=== PATIENT | male | born 1990 | race Hispanic/Latino ===

== ENCOUNTER 2020-04-14 10:08 | Emergency (ER) | payer SELFPAY ==
[2020-04-14 10:42] LABS: Absolute Lymphocytes (CBC) 2.4 K/uL (0.7-4.9); Basophils % 1.3 % (0-1.3); Hematocrit 47.4 % (39.6-49.0); Lymphocytes % 30.1 % (15.3-44.8); MPV 8.2 fL (7.6-11.3); RBC Red Blood Cell Count 5.07 M/uL (4.33-5.43)
[2020-04-14 11:07] LABS: ALT/SGPT 26 U/L (12-78); AST/SGOT 16 U/L (15-37); Albumin 3.9 g/dL (3.4-5.0); Alkaline Phosphatase 79 U/L (45-117); BUN Blood Urea Nitrogen 12 mg/dL (7-18); Bicarbonate 27 mmol/L (21-32); Bilirubin Total 0.9 mg/dL (0.2-1.0); Glucose Level 72 mg/dL (74-106); Potassium 3.5 mmol/L (3.5-5.1); Protein, Total 7.2 g/dL (6.4-8.2); Sodium Level 141 mmol/L (136-145)
--- NOTE | 2020-04-14 11:11 | RAD REPORT ---
EXAM DESCRIPTION: CT - Head C Spine Cap W Con - 04/14/2020 10:42 am CLINICAL HISTORY: fall, fall from scaffolding, head, neck, chest and abdomen pain COMPARISON: No comparisons TECHNIQUE: Axial [address] head images were obtained. Axial [address] cervical spine images were obtaine d with sagittal and coronal reconstruction images reviewed. During dynamic enhancement of 100mL non-i onic contrast, axial 5 mm images of the chest, abdomen and pelvis were obtained. Biphasic technique p erformed of the abdomen and pelvis. All CT scans are performed using dose optimization technique as appropriate and may include automated exposure control or mA/KV adjustment according to patient size. FINDINGS: No intracranial hemorrhage, mass or edema. No midline shift or abnormal fluid collection. Mastoid air cells and paranasal sinuses are clear. No skull fracture. CT cervical spine imaging shows normal height. Normal alignment of the vertebrae. No disc space narro wing. No paraspinal mass or hematoma seen. Central canal detail is inherently limited. Concerns for t raumatic disc herniation or traumatic cord injury can be further addressed with MR imaging. CT chest shows no pneumothorax, pulmonary contusion or pleural fluid collection. Benign calcified gra nuloma seen in the lower left lung field. No mediastinal hematoma and the aorta and pulmonary arterie s are unremarkable. No chest will mass or abnormal axillary finding. No displaced rib fracture or oth er significant bony finding. CT abdomen and pelvis show no injury to solid abdominal viscera. Gallbladder and biliary tree are unr emarkable. No bowel injury or significant finding. No free air, free fluid or abnormal stranding. No urinary bladder abnormality. No significant bony finding. No significant vascular finding. IMPRESSION: No significant CT Head finding. No significant CT Cervical Spine finding. No significant CT Chest finding. No significant CT Abdomen and Pelvis finding.
--- NOTE | 2020-04-14 11:22 | RAD REPORT ---
EXAM DESCRIPTION: RAD - Knee Left 3 View - 04/14/2020 11:08 am CLINICAL HISTORY: fall, patient fell from scaffolding 6-10 fee. COMPARISON: No comparisons FINDINGS: No fracture, dislocation or periosteal reaction.No joint effusion seen. No joint space alireza rowing. No soft tissue abnormality. IMPRESSION: Negative left knee. Clinical concerns for internal derangement or occult bony injury could be further assessed with MR im aging.
--- NOTE | 2020-04-14 11:23 | RAD REPORT ---
EXAM DESCRIPTION: RAD - Tib Fib Left - 04/14/2020 11:09 am CLINICAL HISTORY: Fall from scaffolding COMPARISON: None. FINDINGS: No fracture is identified. There is no dislocation or periosteal reaction noted. No acute or suspicious bony finding. In the medial upper portion of the left lower leg there is a 2.5 centimeter area of lucency adjacent to the tibia. No bony changes in this region. No history of penetrating injury. This may be focal fat ty tissue. Significance is doubtful. IMPRESSION: Negative left tibia & fibula examination for acute or significant finding.
--- NOTE | 2020-04-14 11:24 | RAD REPORT ---
EXAM DESCRIPTION: RAD - Foot Right 3 View - 04/14/2020 11:09 am CLINICAL HISTORY: fallpatient fell from scaffolding 6-10 COMPARISON: No comparisonsNone. FINDINGS: No fracture, dislocation or periosteal reaction. No air or foreign body in the soft tissues. IMPRESSION: Negative right foot examination.
--- NOTE | 2020-04-14 11:24 | RAD REPORT ---
EXAM DESCRIPTION: RAD - Foot Left 3 View - 04/14/2020 11:09 am CLINICAL HISTORY: fall, patient fell from scaffolding 6-10 feet COMPARISON: No comparisons FINDINGS: No fracture, dislocation or periosteal reaction. No acute or destructive bony process. No air or foreign body in the soft tissues. IMPRESSION: Negative left foot examination.
--- NOTE | 2020-04-14 11:24 | RAD REPORT ---
EXAM DESCRIPTION: RAD - Tib Fib Right - 04/14/2020 11:09 am CLINICAL HISTORY: fall, patient fell from scaffolding 6-10 feet COMPARISON: No comparisons FINDINGS: No fracture is identified. There is no dislocation or periosteal reaction noted. No acute or suspicious bony finding. No foreign body or other soft tissue abnormality. IMPRESSION: Negative right tibia & fibula examination.
[2020-04-14] MEDS ORDERED: ONDANSETRON 4 MG/2 ML VIAL ONE (11:26)
[2020-04-14] MEDS ORDERED: MORPHINE 4 MG/ML SYR ONE (11:26)
--- NOTE | 2020-04-14 11:34 | ER ---
Nurse's Notes [facility] Name: Vivek Gonzalez Age: 30 yrs Sex: Male : 1990 Arrival Date: 04/14/2020 Time: 10:12 Bed 2 Private MD: Diagnosis: Unspecified injury of head;Sprain of joints and ligaments of unspecified parts of neck;Strain of muscle, fascia and tendon of lower back;Internal derangement of knee;Abrasion of lower leg Presentation: 04/14 10:25 Chief complaint: Patient states: fall from 6-10 feet off of scaffolding approximately 1 ss hour ago. Pt reports on the way down his knees and feet hit the scaffolding and then he landed onto his back hitting the back of his head. C/o pain to bilateral knees and feet, back of head and lower back. Scraps noted to bilateral lower extremities. No active bleeding noted at this time. Coronavirus screen: Patient denies a cough. Patient denies shortness of breath or difficulty breathing. Patient denies measured and/or subjective temperature greater than 100.4F prior to today's visit. Patient denies travel on a cruise ship or to a country the [facility] currently lists as an affected area. Patient denies contact with known and/or suspected case of COVID-19. Ebola Screen: Patient denies exposure to infectious person. Patient denies travel to an Ebola-affected area in the 21 days before illness onset. Mechanism of Injury: resulted from a fall, from a standing position. Initial Sepsis Screen: Does the patient meet any 2 criteria? No. Patient's initial sepsis screen is negative. Does the patient have a suspected source of infection? No. Patient's initial sepsis screen is negative. Risk Assessment: Do you want to hurt yourself or someone else? Patient reports no desire to harm self or others. 10:25 Method Of Arrival: Ambulatory 10:25 Acuity: ABBY 2 10:25 Care prior to arrival: None. Trauma event details: Injury occurred in the [facility], Injury occurred: April 14, 2020. 10:37 Mechanism of Injury: Fall in industrial area approximately 6 feet. jl7 10:41 Onset of symptoms was April 14, 2020. jl7 Triage Assessment: 10:41 Neuro: Reports none. jl7 Trauma Activation: Alert Physician: ED Physician; Name: ; Notified At: ; Arrived At: Physician: General Surgeon; Name: ; Notified At: ; Arrived At: Physician: Radiology; Name: ; Notified At: ; Arrived At: Physician: Respiratory; Name: ; Notified At: ; Arrived At: Physician: Lab; Name: ; Notified At: ; Arrived At: Historical: - Allergies: 10:27 No Known Allergies; ss - Home Meds: 10:27 None [Active]; ss - PMHx: 10:27 None; ss - PSHx: 10:27 None; ss - Immunization history:: Adult Immunizations up to date. - Social history:: Smoking status: Patient denies any tobacco usage or history of. - Immunization history: Last tetanus immunization: unknown. Screenin:27 Abuse screen: Denies threats or abuse. Denies injuries from another. Nutritional ss screening: No deficits noted. 10:37 Tuberculosis screening: No symptoms or risk factors identified. jl7 10:41 Fall Risk IV access (20 points). Total Cotter Fall Scale indicates No Risk (0-24 pts). jl7 Primary Survey: 10:25 NO uncontrolled hemorrhage observed. ss 10:37 Breathing/Chest: Respiratory pattern: regular, Respiratory effort: spontaneous, jl7 unlabored, Chest inspection: symmetrical rise and fall of the chest. Circulation: Pulses: palpable right radial artery, right posterior tibial artery, left radial artery and left posterior tibial artery. Skin color: pink, Skin temperature: warm. Disability Alert. Exposure/Environment: Obvious injury(ies) are noted at this time: Abrasions and bruising to bilateral shins A warming method has been applied: A warm blanket has been provided to the patient. 11:00 Reassessment Airway Airway Patent Breathing/Chest Respiratory pattern Regular jl7 Respiratory effort Spontaneous Unlabored Chest inspection Symmetrical Circulation Color Harrison Disability Alert. Assessment: 10:25 Reassessment: C-collar placed on pt. jl7 10:37 General: Appears in no apparent distress. uncomfortable, Behavior is calm, cooperative, jl7 appropriate for age. Pain: Complains of pain in posterior cervical area, low back area, right glynn, left knee and left glynn Pain currently is 10 out of 10 on a pain scale. Neuro: Level of Consciousness is awake, alert, obeys commands, Oriented to person, place, time, situation. Cardiovascular: Patient's skin is warm and dry. Pulses are palpable in right radial artery, right posterior tibial artery, left radial artery and left posterior tibial artery. Respiratory: Airway is patent Respiratory effort is even, unlabored, Respiratory pattern is regular, symmetrical, Denies shortness of breath. Derm: Skin is pink, warm \T\ dry. Injury Description: Abrasion sustained to right glynn and left glynn is dirty, was sustained 30-60 minutes ago. 11:26 Reassessment: C-Collar removed. jl7 Vital Signs: 10:25 BP 139 / 79; Pulse 84; Resp 16; Temp 98.4(TE); Pulse Ox 100% on R/A; Pain 10/10; ss 11:00 BP 120 / 75; Pulse 68; Resp 16; Pulse Ox 100% ; jl7 11:20 BP 125 / 71; Pulse 80; Resp 16 S; Pulse Ox 100% on R/A; jl7 11:50 BP 119 / 74; Pulse 60; Resp 16; Pulse Ox 100% ; Pain 8/10; jl7 Dario Coma Score: 10:25 Eye Response: spontaneous(4). Verbal Response: oriented(5). Motor Response: obeys ss commands(6). Total: 15. 10:25 Eye Response: spontaneous(4). Verbal Response: oriented(5). Motor Response: obeys ss commands(6). Total: 15. 11:00 Eye Response: spontaneous(4). Verbal Response: oriented(5). Motor Response: obeys jl7 commands(6). Total: 15. 11:20 Eye Response: spontaneous(4). Verbal Response: oriented(5). Motor Response: obeys jl7 commands(6). Total: 15. 11:50 Eye Response: spontaneous(4). Verbal Response: oriented(5). Motor Response: obeys jl7 commands(6). Total: 15. Trauma Score (Adult): 10:25 Eye Response: spontaneous(1); Verbal Response: oriented(1); Motor Response: obeys ss commands(2); Systolic BP: > 89 mm Hg(4); Respiratory Rate: 10 to 29 per min(4); Houston Score: 15; Trauma Score: 12 ED Course: 10:12 Patient arrived in ED. bp1 10:12 Geovanni Phillips PA is PHCP. jmm 10:12 Kiran Boland MD is Attending Physician. [facility] 10:24 Yisel Caro, DEMETRA is Primary Nurse. jl7 10:27 Triage completed. ss 10:27 Arm band placed on right wrist. ss 10:27 Patient has correct armband on for positive identification. Placed in gown. Bed in low ss position. Call light in reach. 10:30 Initial lab(s) drawn, by me, sent to lab. Inserted saline lock: 20 gauge in left dh3 antecubital area, using aseptic technique. Blood collected. 10:37 Patient maintains SpO2 saturation greater than 95% on room air. Thermoregulation: warm jl7 blanket given to patient. 10:41 Pulse ox on. NIBP on. jl7 10:43 CT Traumagram (Head C Spine CAP W Con) In Process Unspecified. EDMS 11:09 Knee Left 3 View XRAY In Process Unspecified. EDMS 11:09 Tib Fib Left XRAY In Process Unspecified. EDMS 11:09 Tib Fib Right XRAY In Process Unspecified. EDMS 11:09 Foot Right 3 View XRAY In Process Unspecified. EDMS 11:09 Foot Left 3 View XRAY In Process Unspecified. EDMS 12:03 No provider procedures requiring assistance completed. IV discontinued, intact, jl7 bleeding controlled, No redness/swelling at site. Pressure dressing applied. Administered Medications: 11:19 Drug: Zofran (Ondansetron) 4 mg Route: IVP; Site: right antecubital; jl7 12:07 Follow up: Response: No adverse reaction jl7 11:21 Drug: morphine 4 mg Route: IVP; Site: left antecubital; jl7 11:50 Follow up: Response: No adverse reaction; Pain is decreased jl7 Intake: 12:06 PO: 0ml; IV: 0ml; Tubes: 0ml (); Total: 0ml. jl7 Output: 12:06 Urine: 0ml; Gastric: 0ml; Stool: 00; EBL: 0ml; Drainage: 0ml; Other: 0; Total: 0ml. jl7 Outcome: 11:33 Discharge ordered by . jmm 12:03 Discharged to home ambulatory. jl7 12:03 Condition: stable 12:03 Discharge instructions given to patient, Instructed on discharge instructions, follow up and referral plans. medication usage, Demonstrated understanding of instructions, follow-up care, medications. 12:06 Patient's length of stay was not longer than 2 hours. jl7 12:13 Patient left the ED. lt1 Signatures: Dispatcher [employer] EDMS Geovanni Phillips PA PA jmm Smirch, Shelby, RN Yisel Le RN RN jl7 Becca Garner 3 Maranda Alonso lt1 Ara Porter [facility]
--- NOTE | 2020-04-14 11:34 | EDPHYS ---
Physician Documentation [facility] Name: Vivek Gonzalez Age: 30 yrs Sex: Male : 1990 Arrival Date: 04/14/2020 Time: 10:12 Bed 2 Private MD: ED Physician Kiran Boland HPI: 04/14 10:26 This 30 yrs old Male presents to ER via Ambulatory with complaints of Head jmm Injury-Adult, Leg Injury, Back Injury. 10:26 Details of fall: The patient fell from a height, off scaffolding, approximately 10 jmm feet, but hit scaffolding structure on the way down. Onset: The symptoms/episode began/occurred acutely. Associated injuries: The patient sustained injury to the head, neck injury, injury to the low back. This is a 30 year old male with no chronic medical conditions that presents to the ED with complaints of headache, neck pain, lower back pain, knee pain, lower leg pain and bilateral foot pain. Patient denies other injury.. Historical: - Allergies: 10:27 No Known Allergies; ss - Home Meds: 10:27 None [Active]; ss - PMHx: 10:27 None; ss - PSHx: 10:27 None; ss - Immunization history:: Adult Immunizations up to date. - Social history:: Smoking status: Patient denies any tobacco usage or history of. - Immunization history: Last tetanus immunization: unknown. ROS: 10:26 Constitutional: Negative for fever, chills, and weight loss, Cardiovascular: Negative jmm for chest pain, palpitations, and edema, Respiratory: Negative for shortness of breath, cough, wheezing, and pleuritic chest pain. 10:26 Neck: Positive for pain with movement. 10:26 MS/extremity: Positive for injury or acute deformity, pain. 10:26 Skin: Positive for abrasion(s). 10:26 Neuro: Positive for headache. 10:26 All other systems are negative. Exam: 10:26 Constitutional: This is a well developed, well nourished patient who is awake, alert, jmm and in no acute distress. 10:26 Eyes: EOMI, no conjunctival erythema appreciated ENT: Moist Mucus Membranes 10:26 Chest/axilla: Normal chest wall appearance and motion. 10:26 Head/face: Exam is negative for acute changes, abrasion(s), deformity, ecchymosis, hematoma, raccoon eyes, swelling, tenderness. 10:26 Neck: C-spine: vertebral tenderness, that is moderate, diffusely. 10:26 Cardiovascular: Rate: normal, Rhythm: regular, Pulses: no pulse deficits are appreciated. 10:26 Respiratory: the patient does not display signs of respiratory distress, Respirations: normal, Breath sounds: are clear throughout. 10:26 Abdomen/GI: Inspection: abdomen appears normal, Bowel sounds: normal, Palpation: abdomen is soft and non-tender, in all quadrants. 10:26 Back: pain, that is moderate, of the lumbar area. 10:26 Musculoskeletal/extremity: ROM: intact in all extremities, mild left anterior knee pain on palpation, FROM appreciated compartments are soft, NVI. Abrasions noted to thje right and left lower legs, no bony tenderness, compartments are soft, NVI. 10:26 Skin: abrasions noted to the lower legs bilaterally. 10:26 Neuro: Orientation: is normal, Mentation: is normal, Memory: is normal. 10:26 Psych: Behavior/mood is pleasant, cooperative. Vital Signs: 10:25 BP 139 / 79; Pulse 84; Resp 16; Temp 98.4(TE); Pulse Ox 100% on R/A; Pain 10/10; ss 11:00 BP 120 / 75; Pulse 68; Resp 16; Pulse Ox 100% ; jl7 11:20 BP 125 / 71; Pulse 80; Resp 16 S; Pulse Ox 100% on R/A; jl7 11:50 BP 119 / 74; Pulse 60; Resp 16; Pulse Ox 100% ; Pain 8/10; jl7 Gulliver Coma Score: 10:25 Eye Response: spontaneous(4). Verbal Response: oriented(5). Motor Response: obeys ss commands(6). Total: 15. 10:25 Eye Response: spontaneous(4). Verbal Response: oriented(5). Motor Response: obeys ss commands(6). Total: 15. 11:00 Eye Response: spontaneous(4). Verbal Response: oriented(5). Motor Response: obeys jl7 commands(6). Total: 15. 11:20 Eye Response: spontaneous(4). Verbal Response: oriented(5). Motor Response: obeys jl7 commands(6). Total: 15. 11:50 Eye Response: spontaneous(4). Verbal Response: oriented(5). Motor Response: obeys jl7 commands(6). Total: 15. Trauma Score (Adult): 10:25 Eye Response: spontaneous(1); Verbal Response: oriented(1); Motor Response: obeys ss commands(2); Systolic BP: > 89 mm Hg(4); Respiratory Rate: 10 to 29 per min(4); Dario Score: 15; Trauma Score: 12 MDM: 10:26 Patient medically screened. [facility] 11:31 Data reviewed: vital signs, nurses notes. Counseling: I had a detailed discussion with [facility] the patient and/or guardian regarding: the historical points, exam findings, and any diagnostic results supporting the discharge/admit diagnosis, lab results, radiology results, the need for outpatient follow up, to return to the emergency department if symptoms worsen or persist or if there are any questions or concerns that arise at home. ED course: Patient is advised to follow up with pcp and otherwise given strict head injury precautions. Patient understood and agrees with the plan of care. . 04/14 10:28 Order name: CBC with Diff; Complete Time: 10:46 [facility] 04/14 10:28 Order name: CMP; Complete Time: 11:10 [facility] 04/14 10:28 Order name: CT Traumagram (Head C Spine CAP W Con); Complete Time: 11:13 [facility] 04/14 10:28 Order name: Knee Left 3 View XRAY; Complete Time: 11:23 [facility] 04/14 10:28 Order name: Tib Fib Left XRAY; Complete Time: 11:25 [facility] 04/14 10:28 Order name: Tib Fib Right XRAY; Complete Time: 11:26 [facility] 04/14 10:28 Order name: Foot Right 3 View XRAY; Complete Time: 11:26 [facility] 04/14 10:28 Order name: Foot Left 3 View XRAY; Complete Time: 11:26 [facility] 04/14 10:28 Order name: Saline Lock; Complete Time: 10:36 [facility] Administered Medications: 11:19 Drug: Zofran (Ondansetron) 4 mg Route: IVP; Site: right antecubital; jl7 12:07 Follow up: Response: No adverse reaction [facility] 11:21 Drug: morphine 4 mg Route: IVP; Site: left antecubital; jl7 11:50 Follow up: Response: No adverse reaction; Pain is decreased jl7 Disposition: 18:17 Co-signature as Attending Physician, Kiran Boland MD. ma2 Disposition: 04/14/20 11:33 Discharged to Home. Impression: Unspecified injury of head, Sprain of joints and ligaments of unspecified parts of neck, Strain of muscle, fascia and tendon of lower back, Internal derangement of knee, Abrasion of lower leg. - Condition is Stable. - Discharge Instructions: Abrasion, Back Pain, Adult, Head Injury, Adult, Knee Pain. - Prescriptions for orphenadrine citrate 100 mg Oral Tablet Sustained Release - take 1 tablet by ORAL route 2 times per day As needed; 20 tablet. - Medication Reconciliation Form, Thank You Letter, Antibiotic Education, Prescription Opioid Use, Work release form form. - Follow up: Private Physician; When: 2 - 3 days; Reason: Recheck today's complaints, Continuance of care, Re-evaluation by your physician. Signatures: Dispatcher [employer] EDMS Geovanni Phillips PA PA jmm Smirch, Shelby, RN RN Yisel Mcrae RN RN jl7 Kiran Boland MD MD ma2 Maranda Alonso 1 Corrections: (The following items were deleted from the chart) 12:13 11:33 04/14/2020 11:33 Discharged to Home. Impression: Unspecified injury of head; lt1 Sprain of joints and ligaments of unspecified parts of neck; Strain of muscle, fascia and tendon of lower back; Internal derangement of knee; Abrasion of lower leg. Condition is Stable. Forms are Medication Reconciliation Form, Thank You Letter, Antibiotic Education, Prescription Opioid Use. Follow up: Private Physician; When: 2 - 3 days; Reason: Recheck today's complaints, Continuance of care, Re-evaluation by your physician. arlene
[2020-04-14 12:21] VITALS: TEMP 98.4; O2SAT 100
[2020-04-14 12:39] VITALS: BP 120/75
== END 2020-04-14 12:13 | disposition home or self-care (01) ==
LOC: ER 10:08
DX: S13.9XXA Sprain of joints and ligaments of unspecified parts of neck, initial encounter (principal); S39.012A Strain of muscle, fascia and tendon of lower back, initial encounter; S80.812A Abrasion, left lower leg, initial encounter; W17.89XA Other fall from one level to another, initial encounter; Y93.89 Activity, other specified; Y92.89 Other specified places as the place of occurrence of the external cause; Y99.8 Other external cause status
CPT/HCPCS: 36415; 70450; 71260; 72125; 74177; 80053; 85025; 99284; J2405; Q9967

== ENCOUNTER 2020-04-18 21:31 | Emergency (ER) | payer SELFPAY ==
[2020-04-18] MEDS ORDERED: KETOROLAC 30 MG/ML INJ ONE (22:24)
--- NOTE | 2020-04-18 22:59 | EDPHYS ---
Physician Documentation [facility] Name: Vivek Gonzalez Age: 30 yrs Sex: Male : 1990 Arrival Date: 04/18/2020 Time: 21:54 Bed 13 Private MD: ED Physician Yury Webb HPI: 04/19 06:41 This 30 yrs old Male presents to ER via Ambulatory with complaints of Back Pain, Fall tw4 Injury, Headache, Knee Pain. 06:41 The patient presents with pain that is chronic, with no known mechanism of injury. The tw4 symptoms are located in the right scapular area and right subscapular area. Onset: The symptoms/episode began/occurred 1 week(s) ago, and became worse today. The pain does not radiate. Associated signs and symptoms: The patient has no apparent associated signs or symptoms. Severity of symptoms: At their worst the symptoms were mild, in the emergency department the symptoms are unchanged. The patient has experienced a previous episode. Historical: - Allergies: 04/18 22:15 No Known Allergies; ea - Home Meds: 22:15 None [Active]; ea - PMHx: 22:15 None; ea - PSHx: 22:15 None; ea - Immunization history:: Adult Immunizations up to date. - Social history:: Smoking status: Patient reports the use of cigarette tobacco products, smokes one-half pack cigarettes per day, Smoking status: Patient reports the use of cigarette tobacco products, smokes one-half pack cigarettes per day. ROS: 04/19 06:41 Constitutional: Negative for fever, chills, and weight loss, Eyes: Negative for injury, tw4 pain, redness, and discharge, Cardiovascular: Negative for chest pain, palpitations, and edema, Respiratory: Negative for shortness of breath, cough, wheezing, and pleuritic chest pain, Abdomen/GI: Negative for abdominal pain, nausea, vomiting, diarrhea, and constipation, MS/Extremity: Negative for injury and deformity, Skin: Negative for injury, rash, and discoloration, Neuro: Negative for headache, weakness, numbness, tingling, and seizure. Back: Positive for decreased range of motion, pain at rest, pain with movement. Exam: 06:41 Constitutional: This is a well developed, well nourished patient who is awake, alert, tw4 and in no acute distress. Head/Face: Normocephalic, atraumatic. Chest/axilla: Normal chest wall appearance and motion. Nontender with no deformity. No lesions are appreciated. Cardiovascular: Regular rate and rhythm with a normal S1 and S2. No gallops, murmurs, or rubs. Normal PMI, no JVD. No pulse deficits. Respiratory: Lungs have equal breath sounds bilaterally, clear to auscultation and percussion. No rales, rhonchi or wheezes noted. No increased work of breathing, no retractions or nasal flaring. Abdomen/GI: Soft, non-tender, with normal bowel sounds. No distension or tympany. No guarding or rebound. No evidence of tenderness throughout. MS/ Extremity: Pulses equal, no cyanosis. Neurovascular intact. Full, normal range of motion. Neuro: Awake and alert, GCS 15, oriented to person, place, time, and situation. Cranial nerves II-XII grossly intact. Motor strength 5/5 in all extremities. Sensory grossly intact. Cerebellar exam normal. Normal gait. 06:41 Back: pain, that is mild, of the right scapular area and right subscapular area, ROM is normal. Vital Signs: 04/18 22:09 BP 157 / 85; Pulse 67; Resp 18; Temp 98.6; Pulse Ox 100% ; Weight 74.39 kg; Height 5 ea ft. 8 in. (172.72 cm); Pain 8/10; 22:09 Body Mass Index 24.94 (74.39 kg, 172.72 cm) ea MDM: 22:07 Patient medically screened. tw4 04/19 06:41 Differential diagnosis: chronic back pain, Fracture sprain. Data reviewed: vital signs, tw4 nurses notes. Data interpreted: Pulse oximetry: Interpretation: normal. Counseling: I had a detailed discussion with the patient and/or guardian regarding: the historical points, exam findings, and any diagnostic results supporting the discharge/admit diagnosis. Medication response: Toradol partially relieved the patient's pain. Response to treatment: and as a result, I will discharge patient. Special discussion: I discussed with the patient/guardian in detail that at this point there is no indication for admission to the hospital. It is understood, however, that if the symptoms persist or worsen the patient needs to return immediately for re-evaluation. Administered Medications: 04/18 22:21 Drug: TORadol 60 mg Route: IM; Site: right deltoid; ea 23: Follow up: Response: No adverse reaction : Drug: [place] 5 mg-325 mg 1 tabs {Note: RASS 0.} Route: PO; ea 23: Follow up: Response: Medication administered at discharge.; RASS: Alert and Calm (0) Disposition: 04/18/20 22:58 Discharged to Home. Impression: Contusion of right back wall of thorax. - Condition is Stable. - Discharge Instructions: Contusion. - Prescriptions for Ibuprofen 800 mg Oral Tablet - take 1 tablet by ORAL route every 8 hours As needed take with food; 30 tablet. Tramadol 50 mg Oral Tablet - take 1 tablet by ORAL route every 8 hours as needed; 12 tablet. - Work release form, Medication Reconciliation Form, Thank You Letter, Antibiotic Education, Prescription Opioid Use form. - Follow up: Private Physician; When: Upon discharge from the Emergency Department; Reason: Recheck today's complaints, Continuance of care, Re-evaluation by your physician. - Problem is new. - Symptoms have improved. Signatures: Katt Gunter, RN RN lp1 Tammy Gonzalez RN Yury Mohan ea, MD MD tw4 Corrections: (The following items were deleted from the chart) 23:12 22:58 04/18/2020 22:58 Discharged to Home. Impression: Contusion of right back wall of ea thorax. Condition is Stable. Forms are Medication Reconciliation Form, Thank You Letter, Antibiotic Education, Prescription Opioid Use. Follow up: Private Physician; When: Upon discharge from the Emergency Department; Reason: Recheck today's complaints, Continuance of care, Re-evaluation by your physician. Problem is new. Symptoms have improved. tw4
--- NOTE | 2020-04-18 22:59 | ER ---
Nurse's Notes [facility] Name: Vivek Gonzalez Age: 30 yrs Sex: Male : 1990 Arrival Date: 04/18/2020 Time: 21:54 Bed 13 Private MD: Diagnosis: Contusion of right back wall of thorax Presentation: 04/18 22:08 Chief complaint: Patient states: He fell off of a scaffold about 10 feet high on lp1 Friday, seen here in ED; States continued pain to left low back, radiating down left leg, states pain below left knee when weight bearing; No relief with medication prescribed, states Orphenadrine made him itchy. Coronavirus screen: Proceed with normal triage. Ebola Screen: No symptoms or risks identified at this time. Initial Sepsis Screen: Does the patient meet any 2 criteria? No. Patient's initial sepsis screen is negative. Does the patient have a suspected source of infection? No. Patient's initial sepsis screen is negative. Risk Assessment: Do you want to hurt yourself or someone else? Patient reports no desire to harm self or others. Onset of symptoms was April 14, 2020. 22:08 Method Of Arrival: Ambulatory lp1 22:08 Acuity: ABBY 4 lp1 22:10 Ebola Screen: No symptoms or risks identified at this time. ea Historical: - Allergies: 22:15 No Known Allergies; ea - Home Meds: 22:15 None [Active]; ea - PMHx: 22:15 None; ea - PSHx: 22:15 None; ea - Immunization history:: Adult Immunizations up to date. - Social history:: Smoking status: Patient reports the use of cigarette tobacco products, smokes one-half pack cigarettes per day, Smoking status: Patient reports the use of cigarette tobacco products, smokes one-half pack cigarettes per day. Screenin:08 Abuse screen: Denies threats or abuse. Nutritional screening: No deficits noted. ea Tuberculosis screening: No symptoms or risk factors identified. Fall Risk Fall in past 12 months (25 points). Assessment: 22:11 General: Appears uncomfortable, Behavior is appropriate for age. Pain: Complains of ea pain in left flank. Neuro: Level of Consciousness is awake, alert, obeys commands, Oriented to person, place, time, situation. Cardiovascular: Patient's skin is warm and dry. Respiratory: Airway is patent Respiratory effort is even, unlabored, Respiratory pattern is regular, symmetrical. Derm: Skin is normal. 23:10 Reassessment: Patient and/or family updated on plan of care and expected duration. Pain ea level reassessed. Patient is alert, oriented x 3, equal unlabored respirations, skin warm/dry/pink. Discharge instruction given ot patient, verbalized the understanding of instruction. Pt left ED ambulatory accompanied by family. Vital Signs: 22:09 BP 157 / 85; Pulse 67; Resp 18; Temp 98.6; Pulse Ox 100% ; Weight 74.39 kg; Height 5 ea ft. 8 in. (172.72 cm); Pain 8/10; 22:09 Body Mass Index 24.94 (74.39 kg, 172.72 cm) ea ED Course: 21:54 Patient arrived in ED. cf2 21:59 Yury Webb MD is Attending Physician. tw4 22:07 Tammy Gonzalez RN is Primary Nurse. ea 22:09 Patient has correct armband on for positive identification. Bed in low position. Call ea light in reach. Side rails up X2. 22:10 Arm band placed on right wrist. Patient placed in an exam room, on a stretcher, on ea pulse oximetry. 22:13 Triage completed. lp1 23:02 No provider procedures requiring assistance completed. Patient did not have IV access ea during this emergency room visit. Administered Medications: 22:21 Drug: TORadol 60 mg Route: IM; Site: right deltoid; ea 23:01 Follow up: Response: No adverse reaction ea 23:01 Drug: [place] 5 mg-325 mg 1 tabs {Note: RASS 0.} Route: PO; ea 23:01 Follow up: Response: Medication administered at discharge.; RASS: Alert and Calm (0) ea Outcome: 22:58 Discharge ordered by . tw4 23:11 Discharged to home ambulatory, with family. ea 23:11 Condition: stable 23:11 Discharge instructions given to patient, Instructed on discharge instructions, follow up and referral plans. medication usage, Demonstrated understanding of instructions, follow-up care, medications, Prescriptions given X 2. 23:12 Patient left the ED. ea Signatures: Katt Gunter RN RN lp1 Tammy Gonzalez RN RN ea Wadley, Terrence, MD MD tw4 Dionte Estrada cf2
[2020-04-18 23:44] VITALS: BP 157/85; TEMP 98.6; O2SAT 100
== END 2020-04-18 23:12 | disposition home or self-care (01) ==
LOC: EDBD → ER 21:31
DX: S20.221A Contusion of right back wall of thorax, initial encounter (principal); F17.210 Nicotine dependence, cigarettes, uncomplicated; W19.XXXA Unspecified fall, initial encounter; Y93.9 Activity, unspecified; Y92.9 Unspecified place or not applicable
CPT/HCPCS: 96372; 99283

== ENCOUNTER 2020-05-04 19:57 | Emergency (ER) | payer SELFPAY ==
--- NOTE | 2020-05-04 23:48 | EDPHYS ---
Physician Documentation [facility] Name: Vivek Gonzalez Age: 29 yrs Sex: Male : 1990 Arrival Date: 05/04/2020 Time: 20:01 Bed 17 Private MD: ED Physician Silverio Mendoza HPI: 05/04 23:47 This 29 yrs old Male presents to ER via Ambulatory with complaints of Breathing kb Difficulty. 23:47 The patient has shortness of breath at rest. Onset: The symptoms/episode began/occurred kb 4 day(s) ago. Duration: The symptoms are continuous. The patient's shortness of breath has no apparent modifying factors. Associated signs and symptoms: The patient has no apparent associated signs or symptoms. Severity of symptoms: At their worst the symptoms were moderate in the emergency department the symptoms are unchanged. The patient has not experienced similar symptoms in the past. The patient has not recently seen a physician. Pt reports he has felt like he hasn't been getting enough air for 3-4 days. Believes it is from anxiety. Historical: - Allergies: 20:20 No Known Allergies; iw - Home Meds: 20:20 None [Active]; iw - PMHx: 20:20 None; iw - PSHx: 20:20 None; iw - Immunization history:: Adult Immunizations. - Social history:: Smoking status: Patient reports the use of cigarette tobacco products, smokes one-half pack cigarettes per day. ROS: 23:47 Constitutional: Negative for fever, chills, and weight loss, ENT: Negative for injury, kb pain, and discharge, Neck: Negative for injury, pain, and swelling, Cardiovascular: Negative for chest pain, palpitations, and edema, Abdomen/GI: Negative for abdominal pain, nausea, vomiting, diarrhea, and constipation, Back: Negative for injury and pain, MS/Extremity: Negative for injury and deformity, Skin: Negative for injury, rash, and discoloration, Neuro: Negative for headache, weakness, numbness, tingling, and seizure. 23:47 Respiratory: Positive for shortness of breath, Negative for cough, dyspnea on exertion, hemoptysis, orthopnea, pleurisy, sputum production, wheezing. Exam: 23:47 Constitutional: This is a well developed, well nourished patient who is awake, alert, kb and in no acute distress. Head/Face: Normocephalic, atraumatic. Chest/axilla: Normal chest wall appearance and motion. Nontender with no deformity. No lesions are appreciated. Cardiovascular: Regular rate and rhythm with a normal S1 and S2. No gallops, murmurs, or rubs. Normal PMI, no JVD. No pulse deficits. Respiratory: Lungs have equal breath sounds bilaterally, clear to auscultation and percussion. No rales, rhonchi or wheezes noted. No increased work of breathing, no retractions or nasal flaring. Abdomen/GI: Soft, non-tender, with normal bowel sounds. No distension or tympany. No guarding or rebound. No evidence of tenderness throughout. Skin: Warm, dry with normal turgor. Normal color with no rashes, no lesions, and no evidence of cellulitis. MS/ Extremity: Pulses equal, no cyanosis. Neurovascular intact. Full, normal range of motion. Neuro: Awake and alert, GCS 15, oriented to person, place, time, and situation. Cranial nerves II-XII grossly intact. Motor strength 5/5 in all extremities. Sensory grossly intact. Cerebellar exam normal. Normal gait. Vital Signs: 20:19 BP 127 / 78; Pulse 70; Resp 16; Temp 98.5; Pulse Ox 99% on R/A; Weight 74.39 kg; Height iw 5 ft. 8 in. (172.72 cm); 21:54 BP 117 / 72; Pulse 69; Resp 14; Temp 98.4(O); Pulse Ox 99% on R/A; Pain 0/10; ls4 20:19 Body Mass Index 24.94 (74.39 kg, 172.72 cm) iw 21:54 FLACC 0 ls4 MDM: 21:28 Patient medically screened. kb 23:35 Data reviewed: vital signs, nurses notes. Data interpreted: Pulse oximetry: on room air kb is 99 %. Interpretation: normal. Counseling: I had a detailed discussion with the patient and/or guardian regarding: the historical points, exam findings, and any diagnostic results supporting the discharge/admit diagnosis, radiology results, the need for outpatient follow up, a family practitioner, to return to the emergency department if symptoms worsen or persist or if there are any questions or concerns that arise at home. 05/04 20:56 Order name: Chest Pa And Lat (2 Views) XRAY kb Administered Medications: No medications were administered Disposition: 05/05 01:53 Co-signature as Attending Physician, Silverio Mendoza MD. isiah Disposition: 05/04/20 23:47 Discharged to Home. Impression: Dyspnea. - Condition is Stable. - Discharge Instructions: Shortness of Breath, [id number], Panic Attacks, [id number]. - Medication Reconciliation Form, Thank You Letter, Antibiotic Education, Prescription Opioid Use form. - Follow up: Emergency Department; When: As needed; Reason: Worsening of condition. Follow up: Private Physician; When: 2 - 3 days; Reason: Recheck today's complaints, Continuance of care, Re-evaluation by your physician. Signatures: Dispatcher [employer] EDMS Jennifer Lara, GOPI-C CUT OUT PRESS OPERATOR-Silverio Moran MD MD pkl Williams, Irene, RN RN Kristan Lepe RN RN ls4 Corrections: (The following items were deleted from the chart) 00:11 05/04 23:47 05/04/2020 23:47 Discharged to Home. Impression: Dyspnea. Condition is ls4 Stable. Forms are Medication Reconciliation Form, Thank You Letter, Antibiotic Education, Prescription Opioid Use. Follow up: Emergency Department; When: As needed; Reason: Worsening of condition. Follow up: Private Physician; When: 2 - 3 days; Reason: Recheck today's complaints, Continuance of care, Re-evaluation by your physician. kb
--- NOTE | 2020-05-04 23:48 | ER ---
Nurse's Notes [facility] Name: Vivek Goznalez Age: 29 yrs Sex: Male : 1990 Arrival Date: 05/04/2020 Time: 20:01 Bed 17 Private MD: Diagnosis: Dyspnea Presentation: 05/04 20:19 Chief complaint: Patient states: chest pain with deep breathing x 3 days, no cough or iw fever. Coronavirus screen: Proceed with normal triage. Patient denies a cough. Patient denies shortness of breath or difficulty breathing. Patient denies measured and/or subjective temperature greater than 100.4F prior to today's visit. Patient denies travel on a cruise ship or to a country the [facility] currently lists as an affected area. Patient denies contact with known and/or suspected case of COVID-19. Ebola Screen: Patient negative for fever greater than or equal to 101.5 degrees Fahrenheit, and additional compatible Ebola Virus Disease symptoms Patient denies exposure to infectious person. Patient denies travel to an Ebola-affected area in the 21 days before illness onset. No symptoms or risks identified at this time. Initial Sepsis Screen: Does the patient meet any 2 criteria? No. Patient's initial sepsis screen is negative. Does the patient have a suspected source of infection? No. Patient's initial sepsis screen is negative. Risk Assessment: Do you want to hurt yourself or someone else? Patient reports no desire to harm self or others. Onset of symptoms was May 01, 2020. 20:19 Method Of Arrival: Ambulatory iw 20:19 Acuity: ABBY 3 iw Triage Assessment: 21:51 General: Appears in no apparent distress. comfortable, Behavior is calm, cooperative. ls4 Pain: Denies pain. Respiratory: Reports PAIN ON INSPIRATION Breath sounds are clear bilaterally. Onset: The symptoms/episode began/occurred at an unknown time. the patient has mild shortness of breath. Respiratory: Airway is patent Respiratory effort is even, unlabored, Respiratory pattern is regular, PT IN ROOM ON CELL PHONE CONTINUOUSLY HAVING VERBAL CONVERSATION. PT DOES NOT NEED TO STOP SPEAKING TO INHALE OR NEED TO STOP SPEAKING TO BREATH AT ANY TIME DURING HIS PHONE CONVERSATION. Derm: Skin is intact, is healthy with good turgor, Skin is dry, Skin is normal. Musculoskeletal: No deficits noted. No signs and/or symptoms reported regarding the musculoskeletal system. Historical: - Allergies: 20:20 No Known Allergies; iw - Home Meds: 20:20 None [Active]; iw - PMHx: 20:20 None; iw - PSHx: 20:20 None; iw - Immunization history:: Adult Immunizations. - Social history:: Smoking status: Patient reports the use of cigarette tobacco products, smokes one-half pack cigarettes per day. Screenin:28 Abuse screen: Denies threats or abuse. Denies injuries from another. Nutritional ls4 screening: No deficits noted. Tuberculosis screening: No symptoms or risk factors identified. Fall Risk None identified. Assessment: 21:31 Reassessment: Patient appears in no apparent distress at this time. Patient and/or ls4 family updated on plan of care and expected duration. Pain level reassessed. Patient is alert, oriented x 3, equal unlabored respirations, skin warm/dry/pink. 22:31 Reassessment: Patient appears in no apparent distress at this time. Patient and/or ls4 family updated on plan of care and expected duration. Pain level reassessed. Patient is alert, oriented x 3, equal unlabored respirations, skin warm/dry/pink. Cardiovascular: Rhythm is regular. Respiratory: Airway is patent Respiratory effort is even, unlabored, Respiratory pattern is regular, Ventilator assessment:. 05/05 00:09 Reassessment: Patient appears in no apparent distress at this time. Patient and/or ls4 family updated on plan of care and expected duration. Pain level reassessed. Patient is alert, oriented x 3, equal unlabored respirations, skin warm/dry/pink. Vital Signs: 05/04 20:19 BP 127 / 78; Pulse 70; Resp 16; Temp 98.5; Pulse Ox 99% on R/A; Weight 74.39 kg; Height iw 5 ft. 8 in. (172.72 cm); 21:54 BP 117 / 72; Pulse 69; Resp 14; Temp 98.4(O); Pulse Ox 99% on R/A; Pain 0/10; ls4 20:19 Body Mass Index 24.94 (74.39 kg, 172.72 cm) iw 21:54 FLACC 0 ls4 ED Course: 20:01 Patient arrived in ED. ag3 20:20 Triage completed. iw 20:20 Arm band placed on. iw 21:27 Kristan Vick, RN is Primary Nurse. ls4 21:27 Jennifer Lara [facility]-C [facility]. kb 21:27 Silverio Mendoza MD is Attending Physician. kb 21:28 No apparent distress. Appears angry. ls4 21:28 Patient has correct armband on for positive identification. Bed in low position. Call ls4 light in reach. Side rails up X 1. Pulse ox on. NIBP on. Warm blanket given. Verbal reassurance given. 21:28 No provider procedures requiring assistance completed. ls4 21:43 Chest Pa And Lat (2 Views) XRAY In Process Unspecified. EDMS 05/05 00:10 Patient did not have IV access during this emergency room visit. ls4 Administered Medications: No medications were administered Outcome: 05/04 23:47 Discharge ordered by . kb 05/05 00:09 Discharged to home ambulatory. ls4 Condition: stable Discharge instructions given to patient, Instructed on discharge instructions, Demonstrated understanding of instructions, follow-up care, medications. 00:11 Patient left the ED. ls4 Signatures: Dispatcher [employer] EDVT Jennifer Lara FNP-C TURF FARMER-CkSana Goodman, RN RN Fanta Lui ag3 Kristan Vick, RN RN ls4 Corrections: (The following items were deleted from the chart) 00:09 05/04 21:31 Respiratory: Airway ls4 ls4
[2020-05-05 00:28] VITALS: O2SAT 99
[2020-05-05 00:29] VITALS: BP 117/72; TEMP 98.4
--- NOTE | 2020-05-05 08:27 | RAD REPORT ---
EXAM DESCRIPTION: RAD - Chest Pa And Lat (2 Views) - 05/04/2020 9:44 pm CLINICAL HISTORY: DYSPNEA Chest pain. COMPARISON: No comparisons FINDINGS: Small calcified granuloma is seen left mid lung laterally. The lungs are otherwise clear. The heart is normal in size. No displaced fractures. IMPRESSION: No acute or concerning finding suspected.
== END 2020-05-05 00:11 | disposition home or self-care (01) ==
LOC: ER 19:57
DX: R06.00 Dyspnea, unspecified (principal); F17.210 Nicotine dependence, cigarettes, uncomplicated
CPT/HCPCS: 71046; 99283

== ENCOUNTER 2020-10-08 17:06 | Emergency (ER) | payer SELFPAY ==
--- NOTE | 2020-10-08 20:14 | ER ---
Nurse's Notes [facility] Name: Vivek Gonzalez Age: 30 yrs Sex: Male : 1990 Arrival Date: 10/08/2020 Time: 17:10 Bed Waiting Private MD: Diagnosis: Presentation: 10/08 17:30 Chief complaint: Pain and redness to top of left foot x 6 days. Denies injury. hb Coronavirus screen: At this time, the client does not indicate any symptoms associated with coronavirus-19. Ebola Screen: No symptoms or risks identified at this time. Initial Sepsis Screen: Does the patient meet any 2 criteria? No. Patient's initial sepsis screen is negative. Does the patient have a suspected source of infection? No. Patient's initial sepsis screen is negative. Risk Assessment: Do you want to hurt yourself or someone else? Patient reports no desire to harm self or others. Onset of symptoms was October 02, 2020. 17:30 Method Of Arrival: Ambulatory hb 17:30 Acuity: ABBY 4 hb Historical: - Allergies: 17:32 No Known Allergies; hb - Home Meds: 17:32 None [Active]; hb - PMHx: 17:32 None; hb - PSHx: 17:32 None; hb - Immunization history:: Adult Immunizations up to date. - Social history:: Smoking status: Patient denies any tobacco usage or history of. Assessment: 17:46 Reassessment: Pt updated on delay in being seen by a provider. Pt does not appear to be dm5 upset at this time and states that he understands. Vital Signs: 17:30 BP 122 / 70; Pulse 61; Resp 16; Temp 97.1; Pulse Ox 100% on R/A; Pain 6/10; hb ED Course: 17:10 Patient arrived in ED. ds1 17:32 Triage completed. hb 17:32 Arm band placed on. hb 19:36 Patient's name was called from ER lobby. No response. lp1 Administered Medications: No medications were administered Outcome: 20:14 Patient left the ED. ll1 Signatures: Amy Sanchez RN RN dm5 Sanford, Demi ds1 Katt Gunter RN RN lp1 Nerissa Perez RN RN Lui, Lynsay, RN RN ll1
[2020-10-08 20:24] VITALS: BP 122/70; TEMP 97.1; O2SAT 100
== END 2020-10-08 20:14 | disposition left against medical advice (07) ==
LOC: ER 17:06
DX: Z53.21 Procedure and treatment not carried out due to patient leaving prior to being seen by health care provider (principal)
CPT/HCPCS: 99281

== ENCOUNTER 2020-10-09 10:58 | Emergency (ER) | payer SELFPAY ==
--- NOTE | 2020-10-09 11:48 | ER ---
Nurse's Notes [facility] Name: Vivek Gonzalez Age: 30 yrs Sex: Male : 1990 Arrival Date: 10/09/2020 Time: 10:59 Bed 23 Private MD: Diagnosis: Cellulitis of left lower limb-foot Presentation: 10/09 11:08 Chief complaint: Patient states: Redness and swelling on L foot x 1 week, probably an ca1 insect bite. Reports pain on L foot. Coronavirus screen: Client denies travel out of the [place] in the last 14 days. At this time, the client does not indicate any symptoms associated with coronavirus-19. Ebola Screen: Patient negative for fever greater than or equal to 101.5 degrees Fahrenheit, and additional compatible Ebola Virus Disease symptoms Patient denies exposure to infectious person. Patient denies travel to an Ebola-affected area in the 21 days before illness onset. No symptoms or risks identified at this time. Initial Sepsis Screen: Does the patient meet any 2 criteria? No. Patient's initial sepsis screen is negative. Does the patient have a suspected source of infection? No. Patient's initial sepsis screen is negative. Risk Assessment: Do you want to hurt yourself or someone else? Patient reports no desire to harm self or others. Onset of symptoms was October 09, 2020. 11:08 Method Of Arrival: Ambulatory ca1 11:08 Acuity: ABBY 5 ca1 Triage Assessment: 11:25 Bite description: bite sustained to dorsum of left foot by an unknown animal, animal iw information: vaccination(s) is not applicable. General: Appears in no apparent distress. Behavior is calm, cooperative. Historical: - Allergies: 11:10 No Known Allergies; ca1 - Home Meds: 11:10 None [Active]; ca1 - PMHx: 11:10 None; ca1 - PSHx: 11:10 None; ca1 - Immunization history:: Adult Immunizations up to date, Flu vaccine is not up to date. - Social history:: Smoking status: Patient reports the use of cigarette tobacco products, denies chronic smoking, but will smoke occasionally. Screenin:10 Abuse screen: Denies threats or abuse. Denies injuries from another. Nutritional iw screening: No deficits noted. Tuberculosis screening: No symptoms or risk factors identified. Fall Risk None identified. Assessment: 11:30 General: Appears in no apparent distress. Behavior is calm, cooperative. Pain: iw Complains of pain in left foot and dorsum of left foot. Neuro: Level of Consciousness is awake, alert, obeys commands, Oriented to person, place, time, situation, Moves all extremities. Full function. Cardiovascular: Patient's skin is warm and dry. Respiratory: Respiratory effort is even, unlabored, Respiratory pattern is regular, symmetrical. Derm: Skin is intact, Skin is normal, redness and mild swelling to top of left foot, thinks he got bit by something. Vital Signs: 11:08 BP 124 / 81; Pulse 81; Resp 16 S; Temp 98(TE); Pulse Ox 100% on R/A; Weight 78.93 kg; ca1 Height 5 ft. 10 in. (177.80 cm) (R); 11:08 Body Mass Index 24.97 (78.93 kg, 177.80 cm) ca1 ED Course: 10:59 Patient arrived in ED. as 11:08 Patient has correct armband on for positive identification. iw 11:10 Triage completed. ca1 11:10 Arm band placed on right wrist. ca1 11:13 Sana Buenrostro RN is Primary Nurse. iw 11:14 Dariana Holland FNP-C is PHCP. snw 11:14 Raymundo Esteban MD is Attending Physician. snw 12:10 No provider procedures requiring assistance completed. Patient did not have IV access iw during this emergency room visit. Administered Medications: 12:00 Drug: Clindamycin 300 mg Route: PO; iw 12:00 Drug: Tetanus-Diphtheria Toxoid Adult 0.5 ml {Tablet Technician: [employer]. Exp: iw 02/11/2022. Lot #: [id number]. } Route: IM; Site: right deltoid; 12:00 Drug: UltRAM 50 mg Route: PO; iw Outcome: 11:48 Discharge ordered by . snw 12:10 Discharged to home ambulatory. iw 12:10 Condition: good 12:10 Discharge instructions given to patient, Instructed on discharge instructions, follow up and referral plans. Demonstrated understanding of instructions, follow-up care, medications, Prescriptions given X 1. 12:11 Patient left the ED. iw Signatures: Dariana Holland FNP-C BROOD STATION MANAGER-Csnw Lisa Zabala as Sana Buenrostro RN RN iw Kaley Thomas RN RN ca1 Corrections: (The following items were deleted from the chart) 11:11 11:08 Chief complaint: Patient states: Redness and swelling on R foot x 1 week, ca1 probably an insect bite. Reports pain on R foot ca1
--- NOTE | 2020-10-09 11:48 | EDPHYS ---
Physician Documentation [facility] Name: Vivek Gonzalez Age: 30 yrs Sex: Male : 1990 Arrival Date: 10/09/2020 Time: 10:59 Bed 23 Private MD: ED Physician Raymundo Esteban HPI: 10/09 11:45 This 30 yrs old Male presents to ER via Ambulatory with complaints of Foot snw Pain, Insect Bite. 11:45 The patient presents with pain, that is acute, swelling, tenderness. The complaints snw affect the dorsum of left foot. Context: The problem was sustained at home, resulted from an unknown cause, the patient can fully bear weight, the patient is able to ambulate. Onset: The symptoms/episode began/occurred suddenly, 1 week(s) ago, and became persistent. Associated signs and symptoms: Pertinent positives: swelling, warmth. Severity of symptoms: At their worst the symptoms were moderate. The patient has not experienced similar symptoms in the past. The patient has not recently seen a physician. Historical: - Allergies: 11:10 No Known Allergies; ca1 - Home Meds: 11:10 None [Active]; ca1 - PMHx: 11:10 None; ca1 - PSHx: 11:10 None; ca1 - Immunization history:: Adult Immunizations up to date, Flu vaccine is not up to date. - Social history:: Smoking status: Patient reports the use of cigarette tobacco products, denies chronic smoking, but will smoke occasionally. ROS: 11:44 Constitutional: Negative for fever, chills, and weight loss, Eyes: Negative for injury, snw pain, redness, and discharge, ENT: Negative for injury, pain, and discharge, Neck: Negative for injury, pain, and swelling, Cardiovascular: Negative for chest pain, palpitations, and edema, Respiratory: Negative for shortness of breath, cough, wheezing, and pleuritic chest pain, Abdomen/GI: Negative for abdominal pain, nausea, vomiting, diarrhea, and constipation, Back: Negative for injury and pain, MS/Extremity: Negative for injury and deformity, Neuro: Negative for headache, weakness, numbness, tingling, and seizure. 11:44 Skin: Positive for erythema, swelling, of the dorsum of left foot. Exam: 11:43 Constitutional: This is a well developed, well nourished patient who is awake, alert, snw and in no acute distress. Head/Face: Normocephalic, atraumatic. Eyes: Pupils equal round and reactive to light, extra-ocular motions intact. Lids and lashes normal. Conjunctiva and sclera are non-icteric and not injected. Cornea within normal limits. Periorbital areas with no swelling, redness, or edema. ENT: Nares patent. No nasal discharge, no septal abnormalities noted. Tympanic membranes are normal and external auditory canals are clear. Oropharynx with no redness, swelling, or masses, exudates, or evidence of obstruction, uvula midline. Mucous membranes moist. Neck: Trachea midline, no thyromegaly or masses palpated, and no cervical lymphadenopathy. Supple, full range of motion without nuchal rigidity, or vertebral point tenderness. No Meningismus. Chest/axilla: Normal chest wall appearance and motion. Nontender with no deformity. No lesions are appreciated. Cardiovascular: Regular rate and rhythm with a normal S1 and S2. No gallops, murmurs, or rubs. Normal PMI, no JVD. No pulse deficits. Respiratory: Lungs have equal breath sounds bilaterally, clear to auscultation and percussion. No rales, rhonchi or wheezes noted. No increased work of breathing, no retractions or nasal flaring. Abdomen/GI: Soft, non-tender, with normal bowel sounds. No distension or tympany. No guarding or rebound. No evidence of tenderness throughout. Back: No spinal tenderness. No costovertebral tenderness. Full range of motion. MS/ Extremity: Pulses equal, no cyanosis. Neurovascular intact. Full, normal range of motion. Neuro: Awake and alert, GCS 15, oriented to person, place, time, and situation. Cranial nerves II-XII grossly intact. Motor strength 5/5 in all extremities. Sensory grossly intact. Cerebellar exam normal. Normal gait. Psych: Awake, alert, with orientation to person, place and time. Behavior, mood, and affect are within normal limits. 11:43 Skin: Appearance: normal except for affected area, cellulitis, that is moderate, well demarcated, on the dorsum of left foot. Vital Signs: 11:08 BP 124 / 81; Pulse 81; Resp 16 S; Temp 98(TE); Pulse Ox 100% on R/A; Weight 78.93 kg; ca1 Height 5 ft. 10 in. (177.80 cm) (R); 11:08 Body Mass Index 24.97 (78.93 kg, 177.80 cm) ca1 MDM: 11:15 Patient medically screened. snw 11:50 Data reviewed: vital signs, nurses notes. Data interpreted: Pulse oximetry: on room air snw is 100 %. Interpretation: normal. Counseling: I had a detailed discussion with the patient and/or guardian regarding: the historical points, exam findings, and any diagnostic results supporting the discharge/admit diagnosis, the presence of at least one elevated blood pressure reading (>120/80) during this emergency department visit, the need for outpatient follow up, to return to the emergency department if symptoms worsen or persist or if there are any questions or concerns that arise at home. Special discussion: I have referred the patient to see his PCP for further evaluation of high blood pressure. Based on the history and exam findings, there is no indication for further emergent testing or inpatient evaluation. I discussed with the patient/guardian the need to see the primary care provider for further evaluation of the symptoms. Administered Medications: 12:00 Drug: Clindamycin 300 mg Route: PO; iw 12:00 Drug: Tetanus-Diphtheria Toxoid Adult 0.5 ml {Food And Beverage Director: [employer]. Exp: iw 02/11/2022. Lot #: [id number]. } Route: IM; Site: right deltoid; 12:00 Drug: UltRAM 50 mg Route: PO; iw Disposition: 14:45 Co-signature as Attending Physician, Raymundo Esteban MD I agree with the assessment and kdr plan of care. Disposition: 10/09/20 11:48 Discharged to Home. Impression: Cellulitis of left lower limb - foot. - Condition is Stable. - Discharge Instructions: Cellulitis, Adult, VIS, Tetanus, Diphtheria (Td) - CDC, Heat Therapy. - Prescriptions for Clindamycin HCl 300 mg Oral Capsule - take 1 capsule by ORAL route every 6 hours for 10 days; 40 capsule. Diclofenac Sodium 75 mg Oral Tablet Sustained Release - take 1 tablet by ORAL route 2 times per day; 30 tablet. - Work release form, Medication Reconciliation Form, Thank You Letter, Antibiotic Education, Prescription Opioid Use form. - Follow up: Emergency Department; When: As needed; Reason: Worsening of condition. Follow up: Private Physician; When: 2 - 3 days; Reason: Recheck today's complaints, Continuance of care, Re-evaluation by your physician. Signatures: Raymundo Esteban MD MD [facility] Dariana Holland, MOVE COORDINATOR-C MOVE COORDINATOR-Csnw Sana Buenrostro, DEMETRA RN iw William, DEMETRA Roche RN ca1 Corrections: (The following items were deleted from the chart) 12:11 11:48 10/09/2020 11:48 Discharged to Home. Impression: Cellulitis of left lower limb - iw foot. Condition is Stable. Forms are Medication Reconciliation Form, Thank You Letter, Antibiotic Education, Prescription Opioid Use. Follow up: Emergency Department; When: As needed; Reason: Worsening of condition. Follow up: Private Physician; When: 2 - 3 days; Reason: Recheck today's complaints, Continuance of care, Re-evaluation by your physician. snw
[2020-10-09] MEDS ORDERED: TETANUS & DIPHTHERIA TOX,ADULT 0.5 ML VIAL ONE (12:00)
[2020-10-09] MEDS ORDERED: TRAMADOL HCL 50 MG TAB ONE (12:16)
[2020-10-09 12:54] VITALS: BP 124/81; TEMP 98; O2SAT 100
== END 2020-10-09 12:11 | disposition home or self-care (01) ==
LOC: ER 10:58
DX: L03.116 Cellulitis of left lower limb (principal); Z23 Encounter for immunization; Z72.0 Tobacco use
CPT/HCPCS: 90471; 90714; 99283

== ENCOUNTER 2021-11-06 20:32 | Emergency (ER) | payer SELFPAY ==
--- NOTE | 2021-11-06 23:59 | ER ---
Nurse's Notes [facility] Name: Vivek Gonzalez Age: 31 yrs Sex: Male : 1990 Arrival Date: 11/06/2021 Time: 20:36 Bed Treatment Private MD: Diagnosis: Presentation: 11/06 20:44 Chief complaint: Patient states: left Rib pain secondary to injury. Coronavirus screen: da3 Vaccine status: Patient reports being unvaccinated. Ebola Screen: No symptoms or risks identified at this time. Risk Assessment: Do you want to hurt yourself or someone else? Patient reports no desire to harm self or others. 20:44 Method Of Arrival: Ambulatory da3 20:44 Acuity: ABBY 4 da3 Triage Assessment: 20:49 General: Appears in no apparent distress. comfortable, Behavior is calm, cooperative, da3 appropriate for age. Injury Description: Crush injury sustained to chest is Pt states playing with son and he jumped on his left ribs and pain is getting worse. Historical: - Allergies: 20:48 No Known Allergies; da3 - Immunization history:: Client reports having NOT received the Covid vaccine. Vital Signs: 20:44 BP 135 / 95; Pulse 70; Resp 18; Temp 97.7; Pulse Ox 100% on R/A; Weight 77.11 kg; da3 Height 5 ft. 8 in. (172.72 cm); 20:44 Body Mass Index 25.85 (77.11 kg, 172.72 cm) da3 ED Course: 20:36 Patient arrived in ED. da3 20:48 Triage completed. da3 23:52 Gui Maciel MD is Attending Physician. [facility] 23:58 Patient's name was called from ER lobby. No response. Unable to locate patient. Will bb disposition as left without being seen by a provider. Administered Medications: No medications were administered Outcome: 23:58 Patient left the ED. bb Signatures: Yamilka Fraga RN RN bb Gui Mcaiel MD MD [facility] Vasile Grier RN RN [facility]
[2021-11-07 00:28] VITALS: BP 135/95; TEMP 97.7; O2SAT 100
== END 2021-11-06 23:58 | disposition left against medical advice (07) ==
LOC: ER 20:32
DX: Z53.21 Procedure and treatment not carried out due to patient leaving prior to being seen by health care provider (principal)
CPT/HCPCS: 99281

== ENCOUNTER 2021-11-07 08:10 | Emergency (ER) | payer SELFPAY ==
--- NOTE | 2021-11-07 09:53 | RAD REPORT ---
EXAM DESCRIPTION: Tomasa Barbour And Andrea (2 Views)11/07/2021 9:08 am CLINICAL HISTORY: Chest pain COMPARISON: 2019 FINDINGS: Calcified granuloma left lung. The lungs appear clear of acute infiltrate. The heart is normal size IMPRESSION: No acute abnormalities displayed
--- NOTE | 2021-11-07 10:15 | ER ---
Nurse's Notes [facility] Name: Vivek Gonzalez Age: 31 yrs Sex: Male : 1990 Arrival Date: 11/07/2021 Time: 08:12 Bed 5 Private MD: Diagnosis: Chest wall contusion Presentation: 11/07 08:47 Chief complaint: Patient states: CC of left upper lateral chest pain which make it sv1 painful to breath deep x four days. Denies chest pressure,nausea vomiting,diaphoreses and shortness of breath .The provider has seen the patient. 09:13 Coronavirus screen: Client denies travel out of the [place] in the last 14 days. sv1 09:13 Method Of Arrival: Ambulatory sv1 09:14 Ebola Screen: Patient negative for fever greater than or equal to 101.5 degrees sv1 Fahrenheit, and additional compatible Ebola Virus Disease symptoms. Initial Sepsis Screen: Does the patient meet any 2 criteria? No. Patient's initial sepsis screen is negative. Does the patient have a suspected source of infection? No. Patient's initial sepsis screen is negative. Risk Assessment: Do you want to hurt yourself or someone else? Patient reports no desire to harm self or others. Onset of symptoms was November 03, 2021. 09:14 Acuity: ABBY 3 sv1 Triage Assessment: 08:55 GI: Abdomen is tender to palpation Guarding noted left upperquadrant. sv1 09:14 General: Appears uncomfortable, Behavior is calm, cooperative. Pain: Complains of pain sv1 in left nipple. Cardiovascular: No deficits noted. Historical: - Allergies: 08:53 NKA; sv1 - PMHx: 09:20 None; sv1 - Immunization history:: Adult Immunizations. - Social history:: Patient uses cigarettes, Smoking status: Patient reports the use of cigarette tobacco products, denies chronic smoking, but will smoke occasionally. - Family history:: not pertinent. - Code Status:: Full code. - Unable to obtain history due to: [id number]. Screenin:19 Nutritional screening: No deficits noted. sv1 09:22 Abuse screen: Denies threats or abuse. tw2 10:06 Tuberculosis screening: No symptoms or risk factors identified. Fall Risk None sv1 identified. Assessment: 09:02 General: Reports AAO x 4. Seen by the provider cxr ordered. sv1 09:21 Reassessment: cxr COMPL,ETE. RESULTS PENDING. Pain: Denies pain. sv1 10:06 Pain: Pain began 2-3 days ago. sv1 10:07 Pain: Pain does not radiate. sv1 Vital Signs: 08:57 BP 110 / 77; Pulse 70; Resp 16; Temp 97.6; Pulse Ox 99% 0 lpm ; Weight 74.39 kg; Height sv1 5 ft. 7 in. (170.18 cm); 09:38 BP 121 / 86; Pulse 56; Resp 17; Pulse Ox 99% on R/A; tw2 08:57 Body Mass Index 25.69 (74.39 kg, 170.18 cm) sv1 ED Course: 08:12 Patient arrived in ED. mr 08:31 Arielle Ly MD is Attending Physician. sp3 08:47 Nima Suh, DEMETRA is Primary Nurse. sv1 09:01 X-ray ordered. sv1 09:08 Chest Pa And Lat (2 Views) XRAY In Process Unspecified. EDMS 09:14 Arm band placed on. sv1 09:16 Triage completed. sv1 09:19 Patient has correct armband on for positive identification. Pulse ox on. sv1 09:19 No provider procedures requiring assistance completed. Patient did not have IV access sv1 during this emergency room visit. Patient maintains SpO2 saturation greater than 95% on room air. Administered Medications: 09:12 CANCELLED (NURSE DISCRESSIONn): Tylenol 1000 mg PO once sv1 Outcome: 10:14 Discharge ordered by . sp3 10:15 Condition: good sv1 10:15 Discharge instructions given to patient. 10:15 Discharged to home ambulatory. sv1 10:23 Patient left the ED. iw Signatures: Dispatcher [employer] EDAK DominiqueLilia mr Sana Buenrostro RN RN iw Marlen Thomas RN RN tw2 Arielle Ly MD MD sp3 Nima Suh, DEMETRA RN sv1 Corrections: (The following items were deleted from the chart) 08:55 08:53 Allergies: No Known Allergies; sv1 sv1 09:03 09:00 Tylenol 1000 mg PO sv1 sv1 10:05 09:46 BP 121 / 86; Pulse 62bpm; Resp 16bpm; Pulse Ox 100% 0 lpm; Temp 97.6F; sv1 tw2 10:24 Condition: good sv1 sv1 10:25 Discharge instructions given to patient, sv1 sv1
--- NOTE | 2021-11-07 10:15 | EDPHYS ---
Physician Documentation [facility] Name: Vivek Gonzalez Age: 31 yrs Sex: Male : 1990 Arrival Date: 11/07/2021 Time: 08:12 Bed 5 Private MD: ED Physician Arielle Ly HPI: 11/07 08:46 This 31 yrs old Male presents to ER via Unassigned with complaints of Chest sp3 Pain. 08:46 31-year-old male with no past medical history presents with left lower rib pain status sp3 post injury yesterday. Patient states that he was playing with his 10-year-old son who jumped on him and his knee hit his chest. Patient was in the ED waiting room last night but left due to wait time. He returns today for continued symptoms. Symptoms are described as mild but hurt when he pushes on it. Patient denies chest pain left shoulder pain or extremity pain, back pain, abdominal pain, nausea, vomiting, diarrhea, or any other ROS at this time.. Historical: - Allergies: 08:53 NKA; sv1 - PMHx: 09:20 None; sv1 - Immunization history:: Adult Immunizations. - Social history:: Patient uses cigarettes, Smoking status: Patient reports the use of cigarette tobacco products, denies chronic smoking, but will smoke occasionally. - Family history:: not pertinent. - Code Status:: Full code. - Unable to obtain history due to: [id number]. ROS: 08:47 Constitutional: Negative for fever, chills, and weight loss, Eyes: Negative for injury, sp3 pain, redness, and discharge, ENT: Negative for injury, pain, and discharge, Neck: Negative for injury, pain, and swelling, Respiratory: Negative for shortness of breath, cough, wheezing, and pleuritic chest pain, Abdomen/GI: Negative for abdominal pain, nausea, vomiting, diarrhea, and constipation, Back: Negative for injury and pain, MS/Extremity: Negative for injury and deformity, Skin: Negative for injury, rash, and discoloration, Neuro: Negative for headache, weakness, numbness, tingling, and seizure, Psych: Negative for depression, anxiety, suicide ideation, homicidal ideation, and hallucinations, Allergy/Immunology: Negative for hives, rash, and allergies, Endocrine: Negative for neck swelling, polydipsia, polyuria, polyphagia, and marked weight changes. 08:47 All other systems are negative. Exam: 08:48 Constitutional: This is a well developed, well nourished patient who is awake, alert, sp3 and in no acute distress. Head/Face: Normocephalic, atraumatic. Eyes: Pupils equal round and reactive to light, extra-ocular motions intact. Lids and lashes normal. Conjunctiva and sclera are non-icteric and not injected. Cornea within normal limits. Periorbital areas with no swelling, redness, or edema. ENT: Nares patent. No nasal discharge, no septal abnormalities noted. External auditory canals are clear. Oropharynx with no redness, swelling, or masses, exudates, or evidence of obstruction, uvula midline. Mucous membranes moist. Neck: Trachea midline, no thyromegaly or masses palpated, and no cervical lymphadenopathy. Supple, full range of motion without nuchal rigidity, or vertebral point tenderness. No Meningismus. Cardiovascular: Regular rate and rhythm with a normal S1 and S2. No gallops, murmurs, or rubs. Normal PMI, no JVD. No pulse deficits. Respiratory: Lungs have equal breath sounds bilaterally, clear to auscultation and percussion. No rales, rhonchi or wheezes noted. No increased work of breathing, no retractions or nasal flaring. Abdomen/GI: Soft, non-tender, with normal bowel sounds. No distension or tympany. No guarding or rebound. No evidence of tenderness throughout. Back: No spinal tenderness. No costovertebral tenderness. Full range of motion. Skin: Warm, dry with normal turgor. Normal color with no rashes, no lesions, and no evidence of cellulitis. MS/ Extremity: Pulses equal, no cyanosis. Neurovascular intact. Full, normal range of motion. Neuro: Awake and alert, GCS 15, oriented to person, place, time, and situation. Cranial nerves II-XII grossly intact. Motor strength 5/5 in all extremities. Sensory grossly intact. Cerebellar exam normal. Normal gait. Psych: Awake, alert, with orientation to person, place and time. Behavior, mood, and affect are within normal limits. 08:48 Chest/axilla: Patient has pain chest without any palpable fractures or crepitus.. 09:53 ECG was reviewed by the Attending Physician. EKG EKG demonstrates normal sinus rhythm sp3 at 64 bpm with normal intervals, normal QRS, mild left axis deviation, nonspecific ST/T changes without evidence of ischemia. Vital Signs: 08:57 BP 110 / 77; Pulse 70; Resp 16; Temp 97.6; Pulse Ox 99% 0 lpm ; Weight 74.39 kg; Height sv1 5 ft. 7 in. (170.18 cm); 09:38 BP 121 / 86; Pulse 56; Resp 17; Pulse Ox 99% on R/A; tw2 08:57 Body Mass Index 25.69 (74.39 kg, 170.18 cm) sv1 MDM: 08:31 Patient medically screened. sp3 08:49 Data reviewed: vital signs, nurses notes. ED course: 31-year-old male with bruised left sp3 lower ribs. Obtain EKG and chest x-ray and DC home on NSAIDs if negative. I am not suspecting ACS, PE, TAD, pneumonia, sepsis, any other critical findings at this time.. 10:13 ED course: X-ray and EKG are without significant abnormality and we will discharge sp3 patient home at this time on diclofenac p.o.. 12 08:34 Order name: Chest Pa And Lat (2 Views) XRAY; Complete Time: 10:13 sp3 12 08:34 Order name: EKG - Nurse/Tech; Complete Time: 08:59 sp3 Administered Medications: 09:12 CANCELLED (NURSE DISCRESSIONn): Tylenol 1000 mg PO once sv1 Disposition Summary: 11/07/21 10:14 Discharge Ordered Location: Home sp3 Condition: Stable sp3 Diagnosis - Chest wall contusion sp3 Followup: sp3 - With: Private Physician - When: - Reason: Recheck today's complaints Discharge Instructions: - Discharge Summary Sheet sp3 - Chest Wall Pain sp3 Forms: - Medication Reconciliation Form sp3 - Thank You Letter sp3 - Antibiotic Education sp3 - Prescription Opioid Use sp3 Prescriptions: - Diclofenac Sodium 75 mg Oral Tablet Sustained Release - take 1 tablet by ORAL route 2 times per day; 30 tablet; Refills: 0, Product sp3 Selection Permitted Signatures: Dispatcher [employer] EDMS Arielle Ly MD MD sp3 Nima Suh RN RN sv1 Corrections: (The following items were deleted from the chart) 08:55 08:53 Allergies: No Known Allergies; sv1 sv1 : 09:00 Tylenol 1000 mg PO once given. sv1 1 : 09:03 Tylenol 1000 mg PO once ordered. sv1 sv1
[2021-11-07 10:29] VITALS: TEMP 97.6; O2SAT 99
[2021-11-07 10:30] VITALS: BP 121/86
== END 2021-11-07 10:23 | disposition home or self-care (01) ==
LOC: ER 08:10
DX: S20.219A Contusion of unspecified front wall of thorax, initial encounter (principal); F17.210 Nicotine dependence, cigarettes, uncomplicated
CPT/HCPCS: 71046; 93005; 99284

== ENCOUNTER 2025-01-07 15:55 | Emergency (ER) | payer SELFPAY ==
[2025-01-07] MEDS ORDERED: LIDOCAINE 2% W/EPI 1:200,000 MPF 20 ML VIAL IM ONE (17:07)
--- NOTE | 2025-01-07 17:26 | ER ---
Nurse's Notes [facility] Name: Vivek Gonzalez Age: 34 yrs Sex: Male : 1990 Arrival Date: 01/07/2025 Time: 15:55 Bed 12 Private MD: Diagnosis: Laceration without foreign body of scalp Presentation: 01/07 16:24 Chief complaint: Patient states: Hit head on a piece of wood and has laceration to cm10 scalp. No LOC. Coronavirus screen: Client denies travel out of the [place] in the last 14 days. Ebola Screen: Patient denies travel to an Ebola-affected area in the 21 days before illness onset. Initial Sepsis Screen: Does the patient meet any 2 criteria? No. Patient's initial sepsis screen is negative. Does the patient have a suspected source of infection? No. Patient's initial sepsis screen is negative. Risk Assessment: Do you want to hurt yourself or someone else? Patient reports no desire to harm self or others. Onset of symptoms was January 07, 2025. 16:24 Method Of Arrival: Ambulatory cm10 16:24 Acuity: ABBY 4 cm10 Triage Assessment: 16:26 General: Appears in no apparent distress. comfortable, Behavior is calm, cooperative. cm10 Pain: Complains of pain in head. Neuro: No deficits noted. Level of Consciousness is awake, alert, obeys commands, Oriented to person, place, time, situation, Appropriate for age. Respiratory: No deficits noted. Airway is patent Respiratory effort is even, unlabored, Respiratory pattern is regular, symmetrical. Injury Description: Laceration sustained to top of head is clean, 0.5 to 2.5 cm long, was sustained 2-4 hours ago. Historical: - Allergies: 16:25 NKA; cm10 - Home Meds: 16:25 None [Active]; cm10 - PMHx: 16:25 None; cm10 - PSHx: 16:25 None; cm10 - Immunization history:: Adult Immunizations up to date, Last tetanus immunization: unknown. - Infectious Disease History:: Denies. - Social history:: Smoking status: Patient reports the use of cigarette tobacco products, denies chronic smoking, but will smoke occasionally. Screenin:14 [facility] ED Fall Risk Assessment (Adult) History of falling in the last 3 months, cm10 including since admission No falls in past 3 months (0 pts) Confusion or Disorientation No (0 pts) Intoxicated or Sedated No (0 pts) Impaired Gait No (0 pts) Mobility Assist Device Used No (0 pt) Altered Elimination No (0 pt) Score/Fall Risk Level 0 - 2 = Low Risk Oriented to surroundings, Maintained a safe environment, Hourly rounding (assess needs \T\ fall precautionary measures) done. Abuse screen: Denies threats or abuse. Denies injuries from another. Nutritional screening: No deficits noted. Tuberculosis screening: No symptoms or risk factors identified. Vital Signs: 16:24 BP 125 / 80; Pulse 73; Resp 15; Temp 98.4; Pulse Ox 98% on R/A; Weight 83.46 kg; Height cm10 5 ft. 7 in. ; Pain 2/10; 16:24 Body Mass Index 28.82 (83.46 kg, 170.18 cm) cm10 16:24 Pain Scale: Adult cm10 [place] Coma Score: 17:00 Eye Response: spontaneous(4). Motor Response: obeys commands(6). Verbal Response: cp oriented(5). Total: 15. ED Course: 15:58 Patient arrived in ED. im 15:59 Rush Farrar PA is PHCP. cp 15:59 Rush Benavidez MD is Attending Physician. cp 16:25 Triage completed. cm10 16:26 Arm band placed on right wrist. Patient placed in waiting room. cm10 18:15 Patient has correct armband on for positive identification. Provided Education on: cm10 Follow-up instructions.. 18:19 No provider procedures requiring assistance completed. Patient did not have IV access cm10 during this emergency room visit. Administered Medications: 18:13 Drug: Lidocaine Infiltration (2 %) 5 ml 5 ml Infiltration once; with epinephrine {Note: cm10 Given by provider..} Volume: 5 ml; Route: Infiltration; 18:23 Drug: Boostrix Tdap IM 0.5 ml IM once; as a single dose Route: IM; Site: left deltoid; cm10 18:23 Follow up: Response: (VIS) Vaccine information sheet provided today. Questions and/or cm10 concerns addressed. VIS edition date: Jul 06, 2021.; Medication administered at discharge. Medication: 18:21 Vaccine Information Statement (VIS) provided today. Questions and/or concerns cm10 addressed. VIS edition date: July 06, 2021. Outcome: 17:26 Discharge ordered by . cp 18:19 Discharged to home ambulatory, cm10 18:19 Condition: good 18:19 Discharge instructions given to patient, Instructed on discharge instructions, follow up and referral plans. wound care, Demonstrated understanding of instructions, follow-up care, wound care, 18:23 Patient left the ED. cm10 Signatures: Rush Farrar PA PA cp Mendoza, Itzel im Martinez, Clarissa RN RN cm10 Corrections: (The following items were deleted from the chart) 18:14 18:13 VIS not applicable for this client. cm10 cm10
--- NOTE | 2025-01-07 17:27 | EDPHYS ---
Physician Documentation [facility] Name: Vivek Gonzalez Age: 34 yrs Sex: Male : 1990 Arrival Date: 01/07/2025 Time: 15:55 Bed 12 Private MD: ED Physician Rush Benavidez HPI: 01/07 17:00 This 34 yrs old Male presents to ER via Ambulatory with complaints of Head cp Injury Without LOC-Adult. 17:00 The patient or guardian reports a laceration, clean. The complaints affect the right cp frontal area. 17:00 Context of injury: struck edge on corner of table. Onset: The symptoms/episode cp began/occurred today. Associated signs and symptoms: Loss of consciousness: This patient did not experience any loss of consciousness. Pertinent negatives: headache, nausea, neck pain, vomiting. Historical: - Allergies: 16:25 NKA; cm10 - Home Meds: 16:25 None [Active]; cm10 - PMHx: 16:25 None; cm10 - PSHx: 16:25 None; cm10 - Immunization history:: Adult Immunizations up to date, Last tetanus immunization: unknown. - Infectious Disease History:: Denies. - Social history:: Smoking status: Patient reports the use of cigarette tobacco products, denies chronic smoking, but will smoke occasionally. ROS: 17:05 Skin: Positive for laceration(s), of the right frontal area, cp 17:05 Eyes: Negative for injury, pain, redness, and discharge, cp 17:05 Constitutional: Negative for body aches, chills, fever, poor PO intake, 17:05 Cardiovascular: Negative for chest pain, palpitations, 17:05 Respiratory: Negative for cough, shortness of breath, wheezing, 17:05 Abdomen/GI: Negative for abdominal pain, nausea, vomiting, and diarrhea, 17:05 Neuro: Negative for altered mental status, dizziness, loss of consciousness, weakness, 17:05 All other systems are negative, Exam: 17:08 Constitutional: The patient appears in no acute distress, alert, awake, comfortable, cp non-toxic, well developed, well nourished, 17:08 Head/face: Noted is a laceration(s), that is deep, that is linear, of the right cp frontal area, tenderness, that is mild, of the right frontal area, 17:08 Eyes: Periorbital structures: appear normal, Pupils: equal, round, and reactive to light and accomodation, Extraocular movements: intact throughout, Conjunctiva: normal, no exudate, no injection, Sclera: no appreciated abnormality, Lids and lashes: appear normal, 17:08 ENT: External ear(s): are unremarkable, Nose: is normal, Mouth: Lips: moist, Oral mucosa: moist, Posterior pharynx: Airway: no evidence of obstruction, patent, 17:08 Neck: C-spine: vertebral tenderness, is not appreciated, crepitus, is not appreciated, ROM/movement: is normal, is supple, without pain, no range of motions limitations, 17:08 Chest/axilla: Inspection: normal, 17:08 Cardiovascular: Rate: normal, 17:08 Respiratory: the patient does not display signs of respiratory distress, Respirations: normal, no use of accessory muscles, no retractions, labored breathing, is not present, Breath sounds: are clear throughout, no decreased breath sounds, no stridor, no wheezing, 17:08 Abdomen/GI: Exam negative for discomfort, distension, guarding, Inspection: abdomen appears normal, 17:08 Back: pain, is absent, ROM is normal, 17:08 Neuro: Orientation: to person, place \T\ time. Mentation: is normal, Cerebellar function: is grossly normal, Motor: moves all fours, strength is normal, Sensation: is normal, Gait: is steady, at a normal pace, without difficulty, Vital Signs: 16:24 BP 125 / 80; Pulse 73; Resp 15; Temp 98.4; Pulse Ox 98% on R/A; Weight 83.46 kg; Height cm10 5 ft. 7 in. ; Pain 2/10; 16:24 Body Mass Index 28.82 (83.46 kg, 170.18 cm) cm10 16:24 Pain Scale: Adult cm10 [place] Coma Score: 17:00 Eye Response: spontaneous(4). Motor Response: obeys commands(6). Verbal Response: cp oriented(5). Total: 15. Laceration: 17:23 Wound Repair of 3cm ( 1.2in ) subcutaneous laceration to right frontal area. Linear cp shaped.. Distal neuro/vascular/tendon intact. Anesthesia: Wound infiltrated with 5 mls of 2% lidocaine. Wound prep: Simple cleansing by me. Skin closed with 5 1-0 Joppa using staple gun. Dressed with Bacitracin. Patient tolerated well. MDM: 16:28 Medical Screening Exam initiated [facility] 17:26 Data reviewed: vital signs, nurses notes, and as a result, I will discharge patient. cp 17:26 Differential diagnosis: Contusion of Hematoma on Laceration of Intracranial bleed- cp Concussion cerebral contusion. I considered the following discharge prescriptions or medication management in the emergency department Medications were administered in the Emergency Department. See MAR. Test considered but Not performed: CT: head. Counseling: I had a detailed discussion with the patient and/or guardian regarding the historical points, exam findings, and any diagnostic results supporting the discharge/admit diagnosis, to return to the emergency department if symptoms worsen or persist or if there are any questions or concerns that arise at home. Response to treatment: the patient's symptoms have markedly improved after treatment, and as a result, I will discharge patient. Administered Medications: 18:13 Drug: Lidocaine Infiltration (2 %) 5 ml 5 ml Infiltration once; with epinephrine {Note: cm10 Given by provider..} Volume: 5 ml; Route: Infiltration; 18:23 Drug: Boostrix Tdap IM 0.5 ml IM once; as a single dose Route: IM; Site: left deltoid; cm10 18:23 Follow up: Response: (VIS) Vaccine information sheet provided today. Questions and/or cm10 concerns addressed. VIS edition date: Jul 06, 2021.; Medication administered at discharge. Disposition: 23:13 Co-signature as Attending Physician, Rush Benavidez MD I agree with the assessment and [facility] plan of care. 01/08 17:13 Chart complete. cp Disposition Summary: 01/07/25 17:26 Discharge Ordered Notes: Location: Home cp Problem: new cp Symptoms: have improved cp Condition: Stable cp Diagnosis - Laceration without foreign body of scalp cp Followup: cp - With: Private Physician - When: 1 week - Reason: Staple/Suture removal Discharge Instructions: - Discharge Summary Sheet cp - Head Injury, Adult cp - Laceration Care, Adult cp - Sutures, Joppa, or Adhesive Wound Closure cp Forms: - Medication Reconciliation Form cp - Antibiotic Education cp - Prescription Opioid Use cp - Patient Portal Instructions cp - Leadership Thank You Letter cp Signatures: Rush Benavidez MD MD cha Page, Corey, PA PA cp Martinez, Clarissa, RN RN cm10
[2025-01-07] MEDS ORDERED: TDAP (DIPHTH,PERTUSS(ACELL),TET VAC) 0.5 ML VIAL IMVAC ONE (18:17)
[2025-01-07 18:44] VITALS: BP 125/80; TEMP 98.4; O2SAT 98
== END 2025-01-07 18:23 | disposition home or self-care (01) ==
LOC: ER 15:55
DX: S01.01XA Laceration without foreign body of scalp, initial encounter (principal); W22.03XA Walked into furniture, initial encounter
CPT/HCPCS: 12002; 96372; 99284

== ENCOUNTER 2025-01-16 13:55 | Emergency (ER) | payer OTHER ==
--- NOTE | 2025-01-16 14:19 | EDPHYS ---
Physician Documentation [facility] Name: Vivek Gonzalez Age: 34 yrs Sex: Male : 1990 Arrival Date: 01/16/2025 Time: 13:55 Bed Waiting Private MD: ED Physician Cachorro Nevarez HPI: 01/16 14:16 This 34 yrs old Male presents to ER via Unassigned with complaints of Staple kb Removal. 14:16 Pt is a 34 year old male who presents to have toshia removed from head. States he had kb them placed 8-9 days ago. Denies any drainage, pain, swelilng. . Historical: - Allergies: 14:46 NKA; me1 - Home Meds: 14:46 None [Active]; me1 - PMHx: 14:46 None; me1 - PSHx: 14:46 None; me1 - Immunization history:: Adult Immunizations up to date. - Infectious Disease History:: Denies. - Social history:: Smoking status: Patient denies any tobacco usage or history of. ROS: 14:14 Constitutional: As per HPI kb Exam: 14:14 Constitutional: This is a well developed, well nourished patient who is awake, alert, kb and in no acute distress. Head/Face: Normocephalic, atraumatic. ENT: Moist Mucous membranes Cardiovascular: Regular rate Respiratory: Respirations even and unlabored. No increased work of breathing. Talking in full sentences MS/ Extremity: Pulses equal, no cyanosis. Neurovascular intact. Full, normal range of motion. Neuro: Awake and alert, GCS 15, oriented to person, place, time, and situation. 14:14 Skin: Wound recheck: Staple laceration closure: the wound is healing well, the edges are well approximated, no evidence of dehiscence, no drainage, no erythema, no swelling, Vital Signs: 14:35 BP 124 / 81; Pulse 65; Resp 15; Temp 98.1; Pulse Ox 100% ; me1 Procedures: 14:16 Suture/Staple removal: Removed 5 toshia, from right frontal area, site appears well kb healed, Patient tolerated well. MDM: 14:10 Medical Screening Exam initiated kb 14:15 Data reviewed: vital signs, nurses notes. 14:16 Counseling: I had a detailed discussion with the patient and/or guardian regarding the kb historical points, exam findings, and any diagnostic results supporting the discharge/admit diagnosis, the need for outpatient follow up, a family practitioner, to return to the emergency department if symptoms worsen or persist or if there are any questions or concerns that arise at home. Administered Medications: No medications were administered Disposition Summary: 01/16/25 14:19 Discharge Ordered Notes: Location: Home kb Condition: Stable kb Diagnosis - Encounter for removal of sutures - toshia kb Followup: kb - With: Emergency Department - When: As needed - Reason: Worsening of condition Followup: kb - With: Private Physician - When: 2 - 3 days - Reason: Recheck today's complaints, Continuance of care, Re-evaluation by your physician Discharge Instructions: - Discharge Summary Sheet kb - Suture Removal, Care After kb Forms: - Medication Reconciliation Form kb - Antibiotic Education kb - Prescription Opioid Use kb - Patient Portal Instructions kb - Leadership Thank You Letter kb Signatures: Jennifer Lara FNP-C FNP-Aminata Tompkins, RN RN me1
--- NOTE | 2025-01-16 14:49 | ER ---
Nurse's Notes [facility] Name: Vivek Gonzalez Age: 34 yrs Sex: Male : 1990 Arrival Date: 01/16/2025 Time: 13:55 Bed Waiting Private MD: Diagnosis: Encounter for removal of sutures-toshia Presentation: 01/16 14:45 Chief complaint: Patient states: needs toshia removed from scalp. Coronavirus screen: me1 At this time, the client does not indicate any symptoms associated with coronavirus-19. Ebola Screen: No symptoms or risks identified at this time. Initial Sepsis Screen: Does the patient meet any 2 criteria? No. Patient's initial sepsis screen is negative. Does the patient have a suspected source of infection? No. Patient's initial sepsis screen is negative. Risk Assessment: Do you want to hurt yourself or someone else? Patient reports no desire to harm self or others. Onset of symptoms is unknown. 14:45 Method Of Arrival: Ambulatory [facility] 14:45 Acuity: ABBY 5 ga1 Triage Assessment: 14:46 General: Appears comfortable, well groomed, well developed, well nourished, Behavior is me1 calm, cooperative, appropriate for age. Pain: Denies pain. EENT: No signs and/or symptoms were reported regarding the EENT system. Neuro: Level of Consciousness is awake, alert, obeys commands, Oriented to person, place, time, situation, Appropriate for age. Cardiovascular: Patient's skin is warm and dry. Respiratory: Airway is compromised Respiratory effort is even, unlabored, Respiratory pattern is regular, symmetrical. GI: No signs and/or symptoms were reported involving the gastrointestinal system. : No signs and/or symptoms were reported regarding the genitourinary system. Derm: Wound noted face and right frontal area Wound is lac with toshia. Musculoskeletal: No signs and/or symptoms reported regarding the musculoskeletal system. Historical: - Allergies: 14:46 NKA; me1 - Home Meds: 14:46 None [Active]; me1 - PMHx: 14:46 None; me1 - PSHx: 14:46 None; me1 - Immunization history:: Adult Immunizations up to date. - Infectious Disease History:: Denies. - Social history:: Smoking status: Patient denies any tobacco usage or history of. Screenin:47 [facility] ED Fall Risk Assessment (Adult) History of falling in the last 3 months, me1 including since admission No falls in past 3 months (0 pts) Confusion or Disorientation No (0 pts) Intoxicated or Sedated No (0 pts) Impaired Gait No (0 pts) Mobility Assist Device Used No (0 pt) Altered Elimination No (0 pt) Score/Fall Risk Level 0 - 2 = Low Risk Maintained a safe environment, Provided non-skid footwear, Hourly rounding (assess needs \T\ fall precautionary measures) done. Abuse screen: Denies threats or abuse. Nutritional screening: No deficits noted. Tuberculosis screening: No symptoms or risk factors identified. Assessment: 14:35 General: See triage assessment. me1 Vital Signs: 14:35 BP 124 / 81; Pulse 65; Resp 15; Temp 98.1; Pulse Ox 100% ; me1 ED Course: 14:09 Patient arrived in ED. al6 14:09 Jennifer Lara [facility]-C [facility] kb 14:09 Cachorro Nevarez MD is Attending Physician. kb 14:46 Triage completed. me1 14:46 Arm band placed on Patient placed in waiting room. me1 14:47 Patient has correct armband on for positive identification. Provided Education on: POC. me1 Verbalized understanding.. 14:47 No provider procedures requiring assistance completed. Patient did not have IV access me1 during this emergency room visit. Administered Medications: No medications were administered Medication: 15:06 VIS not applicable for this client. me1 Outcome: 14:19 Discharge ordered by . kb 14:47 Discharged to home ambulatory, me1 14:47 Condition: stable 14:47 Instructed on discharge instructions, follow up and referral plans. Demonstrated understanding of instructions, follow-up care, 14:48 Patient left the ED. me1 Signatures: Jennifer Lara FNP-C FNP-Ckb Eddleman, Michelle, RN RN me1 Lesia Collins al6
== END 2025-01-16 14:48 | disposition home or self-care (01) ==
LOC: ER 13:55
DX: Z48.02 Encounter for removal of sutures (principal)
CPT/HCPCS: 99282